=== PATIENT | male | born 1990 | race Hispanic/Latino ===

== ENCOUNTER 2017-12-30 11:54 | Emergency (ER) | payer OTHER ==
[2017-12-30] MEDS: LIDOCAINE 2% MDV 20 ML VIAL SC (11:45)
== END 2017-12-30 13:11 | disposition home or self-care (01) ==
LOC: M ED 11:54
DX: S61.210A Laceration without foreign body of right index finger without damage to nail, initial encounter (principal); S66.120A Laceration of flexor muscle, fascia and tendon of right index finger at wrist and hand level, initial encounter; W26.8XXA Contact with other sharp object(s), not elsewhere classified, initial encounter; Y92.098 Other place in other non-institutional residence as the place of occurrence of the external cause; K21.9 Gastro-esophageal reflux disease without esophagitis; Z88.0 Allergy status to penicillin; Z79.899 Other long term (current) drug therapy
CPT/HCPCS: 73140